=== PATIENT | female | born 1970 | race African-American/Black ===

== ENCOUNTER 2017-04-02 06:57 | Emergency (ER) | payer SELFPAY ==
[2017-04-02 07:53] LABS: ALT (SGPT) 10 U/L (8-55); AST (SGOT) 14 U/L (5-34); Alkaline Phosphatase 74 U/L (40-150); Anion Gap 15 mmol/L (10-20); BUN (Urea Nitrogen) 7 mg/dL (7.0-18.7); Bilirubin, Total 0.6 mg/dL (0.2-1.2); Calc. Creatinine Clearance 0 mL/min (70-130); Calcium 10.8 mg/dL (7.8-10.44); Carbon Dioxide 20 mmol/L (22-29); Chloride 105 mmol/L (98-107); Estimated GFR-MDRD Greater than 90; Globulin 4.8 g/dL (2.4-3.5); Magnesium 2.1 mg/dL (1.6-2.6); Protein, Total 9.2 g/dL (6.0-8.3)
[2017-04-02 07:57] LABS: Troponin I Less than 0.010 ng/mL (< 0.028)
[2017-04-02 08:01] LABS: #Basophils 0.1 thou/uL (0.0-0.2); #Eosinphils 0.3 thou/uL (0.0-0.7); #Monocytes 0.4 thou/uL (0.11-0.59); #Neutrophils 4.3 thou/uL (1.40-6.50); %Basophils 1.3 % (0.0-1.0); %Lymphocytes 37.1 % (21.0-51.0); %Monocytes 4.3 % (0.0-10.0); Hematocrit 34.3 % (36.0-47.0); Hypochromia MODERATE=16-30 cells (100X) (0-5/hpf); Mean Platelet Volume 10.5 fL (7.4-10.4); Target Cells SLIGHT = 2-5 cells (100X) (0-1/hpf); White Blood Cell (WBC) Count 8.1 thou/uL (4.8-10.8)
[2017-04-02 08:24] LABS: Bilirubin Negative (Negative); Blood, Urine Large (Negative); Glucose, Urine (Dipstick) Negative (Negative); Ketone, Urine 15 mg/dL (Negative); Nitrite Positive (Negative); Protein, Urine (Dipstick) 100 mg/dL (Neg-Trace); Urobilinogen 0.2 mg/dL (0.2-1.0)
[2017-04-02 08:27] LABS: Bacteria/HPF None Seen HPF (None Seen)
[2017-04-02 08:41] LABS: RBC/HPF GREATER THAN 50-TNTC HPF (0-3)
[2017-04-02 08:42] LABS: Hyaline Casts/LPF NONE SEEN LPF (0-3 Hyaline)
== END 2017-04-02 08:55 | disposition home or self-care (01) ==
LOC: ERS 06:57
DX: I47.1 Supraventricular tachycardia (principal); I25.2 Old myocardial infarction; I49.9 Cardiac arrhythmia, unspecified; I10 Essential (primary) hypertension; F17.210 Nicotine dependence, cigarettes, uncomplicated; Z79.899 Other long term (current) drug therapy
CPT/HCPCS: 80053; 81003; 81015; 81025; 83735; 84484; 85025; 93005; 96360; 99406

== ENCOUNTER 2017-05-21 00:15 | Emergency (ER) | payer SELFPAY ==
[2017-05-21 01:22] LABS: #Basophils 0.1 thou/uL (0.0-0.2); #Eosinphils 0.3 thou/uL (0.0-0.7); #Lymphocytes 3.1 thou/uL (1.20-3.40); #Monocytes 0.5 thou/uL (0.11-0.59); #Neutrophils 7.5 thou/uL (1.40-6.50); %Basophils 0.6 % (0.0-1.0); %Lymphocytes 26.5 % (21.0-51.0); %Monocytes 4.7 % (0.0-10.0); Hematocrit 27.9 % (36.0-47.0); Mean Platelet Volume 4.9 fL (7.4-10.4); Red Blood Cell (RBC) Count 3.91 mill/uL (4.20-5.40); White Blood Cell (WBC) Count 11.5 thou/uL (4.8-10.8)
[2017-05-21 01:25] LABS: PTT 28.5 SEC (22.9-36.1); Prothrombin Time 14.8 SEC (12.0-14.7)
[2017-05-21 01:41] LABS: ALT (SGPT) 9 U/L (8-55); AST (SGOT) 11 U/L (5-34); Alkaline Phosphatase 51 U/L (40-150); Anion Gap 11 mmol/L (10-20); BUN (Urea Nitrogen) 8 mg/dL (7.0-18.7); Bilirubin, Total 0.3 mg/dL (0.2-1.2); Calc. Creatinine Clearance 0 mL/min (70-130); Calcium 9.7 mg/dL (7.8-10.44); Carbon Dioxide 20 mmol/L (22-29); Chloride 110 mmol/L (98-107); Estimated GFR-MDRD Greater than 90; Globulin 3.2 g/dL (2.4-3.5); Protein, Total 6.7 g/dL (6.0-8.3)
--- NOTE | 2017-05-21 07:46 | RAD ---
PORTABLE CHEST: HISTORY: Supraventricular tachycardia. FINDINGS: Lungs are clear. Heart and mediastinum unremarkable. No evidence of vascular congestion. IMPRESSION: No acute finding. POS: [facility]
--- NOTE | 2017-06-04 11:18 | EKG ---
Test Reason : EMERGENCY EXAM Blood Pressure : / mmHG Vent. Rate : 098 BPM Atrial Rate : 098 BPM P-R Int : 128 ms QRS Dur : 070 ms QT Int : 336 ms P-R-T Axes : 071 070 046 degrees QTc Int : 428 ms Normal sinus rhythm Possible Left atrial enlargement Left ventricular hypertrophy Nonspecific ST abnormality Abnormal ECG Confirmed by RIN ALARCON M.D. ([id number]), editor news WILL NEWTON ([id number]) on 06/04/2017 11:18:10 AM Referred By: Confirmed By:RIN ALARCON M.D.
== END 2017-05-21 02:06 | disposition home or self-care (01) ==
LOC: ERS 00:15
DX: I47.1 Supraventricular tachycardia (principal); I10 Essential (primary) hypertension; I25.2 Old myocardial infarction; I49.9 Cardiac arrhythmia, unspecified; F17.210 Nicotine dependence, cigarettes, uncomplicated; Z79.899 Other long term (current) drug therapy
CPT/HCPCS: 36415; 71010; 80053; 82553; 84484; 84703; 85025; 85610; 85730; 93005; 96360

== ENCOUNTER 2025-01-12 16:38 | Inpatient (IN) | payer OTHER ==
[~2025-01-12 16:38] MED LIST: Iopamidol 370 76% 100 ML VIAL ONE
[2025-01-12] MEDS ORDERED: Aspirin Chewable 81 MG TAB ONE (17:19)
[2025-01-12 17:41] LABS: #Basophils 0.05 10x3/uL (0.0-0.2); #Eosinophils 0.12 10x3/uL (0.0-0.7); #Monocytes 0.56 10x3/uL (0.11-0.59); #Neutrophils 5.25 10x3/uL (1.40-6.50); %Basophils 0.6 % (0.0-1.0); %Eosinophils 1.4 % (0.0-10.0); %Lymphocytes 30.2 % (21.0-51.0); %Monocytes 6.5 % (0.0-10.0); %Neutrophils 61.1 % (42.0-75.0); Hematocrit 28.9 % (36.0-47.0); Hemoglobin 9.1 g/dL (12.0-16.0); Mean Corpuscular Hemoglobin 22.2 pg (27.0-31.0); Mean Corpuscular Volume 70.7 fL (78.0-98.0); Platelet Count 405 10x3/uL (130-400); Red Blood Cell (RBC) Count 4.09 mill/uL (4.20-5.40); White Blood Cell (WBC) Count 8.59 10x3/uL (4.8-10.8)
[2025-01-12 17:51] LABS: ALT (SGPT) 11 U/L (Less than 34); AST (SGOT) 12 U/L (11-34); Acetaminophen Less than 10 mcg/mL (Less than 10); Albumin 3.3 g/dL (3.1-4.5); Alkaline Phosphatase 69 U/L (40-110); Anion Gap 13 mmol/L (10-20); BUN (Urea Nitrogen) 6 mg/dL (9.8-20.1); Bilirubin, Total 0.6 mg/dL (0.3-1.2); Calc. Creatinine Clearance 0 mL/min (70-130); Calcium 10.0 mg/dL (7.8-10.44); Carbon Dioxide 21 mmol/L (22-29); Chloride 108 mmol/L (98-107); Globulin 3.2 g/dL (2.4-3.5); Glucose 98 mg/dL (70-105); Potassium 3.9 mmol/L (3.5-5.1); Salicylate Less than 8.0 mg/dL (Less than 8.0); Sodium 138 mmol/L (136-145)
[2025-01-12 17:53] LABS: INR-International Normal Ratio 1.1; PTT 25.8 sec (22.9-36.1); Prothrombin Time 14.7 sec (12.0-14.7)
[2025-01-12 17:58] LABS: Troponin I Less than 0.010 ng/mL (< 0.028)
[2025-01-12 18:07] LABS: Microcytosis SLIGHT = 6-15 cells (100X) (0-5/hpf); Plasma Cells 0 % (0-0); Platelet Adequacy Comment Appears Increased; Polychromasia SLIGHT = 2-3 cells (100X) (0-2/hpf)
[2025-01-12] MEDS ORDERED: Acetaminophen 500 MG TAB ONE (18:46)
[2025-01-12] MEDS ORDERED: Ondansetron PF 4 MG/2 ML Vial IVP PRN (19:58)
[2025-01-12] MEDS: diphenhydrAMINE 50 MG/ML VIAL IVP SCH (21:22)
[2025-01-12] MEDS: Prochlorperazine 10 MG/2 ML VIAL SLOW IVP SCH (21:22)
[2025-01-12] MEDS: Fioricet 325/50/40 mg Tablet PO PRN (21:37)
[2025-01-12 23:18] VITALS: BMI 29.2
[2025-01-13 04:01] LABS: #Basophils 0.05 10x3/uL (0.0-0.2); #Eosinophils 0.22 10x3/uL (0.0-0.7); #Monocytes 0.69 10x3/uL (0.11-0.59); #Neutrophils 4.32 10x3/uL (1.40-6.50); %Basophils 0.6 % (0.0-1.0); %Eosinophils 2.6 % (0.0-10.0); %Lymphocytes 37.6 % (21.0-51.0); %Monocytes 8.1 % (0.0-10.0); %Neutrophils 50.9 % (42.0-75.0); Hematocrit 29.3 % (36.0-47.0); Hemoglobin 9.0 g/dL (12.0-16.0); Mean Corpuscular Hemoglobin 22.2 pg (27.0-31.0); Mean Corpuscular Volume 72.2 fL (78.0-98.0); Platelet Count 367 10x3/uL (130-400); Red Blood Cell (RBC) Count 4.06 mill/uL (4.20-5.40); White Blood Cell (WBC) Count 8.50 10x3/uL (4.8-10.8)
[2025-01-13 04:32] LABS: Anisocytosis SLIGHT = 6-15 cells HPF (0-5); Microcytosis SLIGHT = 6-15 cells HPF (0-5); Platelet Adequacy Comment Platelets Normal; Polychromasia SLIGHT = 2-3 cells HPF (0-2); Target Cells SLIGHT = 2-5 cells HPF (0-1)
[2025-01-13 04:43] LABS: Anion Gap 10 mmol/L (10-20); BUN (Urea Nitrogen) 10 mg/dL (9.8-20.1); Calc. Creatinine Clearance 177 mL/min (70-130); Calcium 10.2 mg/dL (7.8-10.44); Carbon Dioxide 20 mmol/L (22-29); Cardiac Risk 3.8 (Less than 4.5); Chloride 109 mmol/L (98-107); Cholesterol 153 mg/dl (< 200 Desired); Glucose 97 mg/dL (70-105); HDL Cholesterol 40 mg/dL (>60 Neg Risk); Iron 47 ug/dL (50-170); Iron Binding Capacity, Total 343 mcg/dL (265-497); LDL Cholesterol, Calculated 97 mg/dL; Potassium 3.5 mmol/L (3.5-5.1); Sodium 135 mmol/L (136-145); Triglycerides 80 mg/dL (Less than 150)
[2025-01-13] MEDS: Enoxaparin 40 MG (0.4 mL) SYRINGE SC SCH (09:13)
[2025-01-13] MEDS: Aspirin 81 mg Enteric Coated Tablet PO SCH (09:13)
[2025-01-13] MEDS: NIFEdipine XL 30 MG ER.TAB PO SCH (09:13)
[2025-01-13] MEDS: Acetaminophen 325 MG TAB PO PRN (13:15)
[2025-01-13] MEDS: Triple Antibiotic Oint 1 GM Packet TOP PRN (13:15)
[2025-01-14 09:40] LABS: Cocaine Metabolite Screen Negative (Negative); THC/Cannabinoid Screen Negative (Negative); Tricyclic Screen Negative (Negative)
[2025-01-14 11:42] LABS: #Basophils 0.04 10x3/uL (0.0-0.2); #Eosinophils 0.15 10x3/uL (0.0-0.7); #Monocytes 0.76 10x3/uL (0.11-0.59); #Neutrophils 5.07 10x3/uL (1.40-6.50); %Basophils 0.5 % (0.0-1.0); %Eosinophils 1.7 % (0.0-10.0); %Lymphocytes 30.7 % (21.0-51.0); %Monocytes 8.7 % (0.0-10.0); %Neutrophils 58.2 % (42.0-75.0); Hematocrit 32.8 % (36.0-47.0); Hemoglobin 10.1 g/dL (12.0-16.0); Mean Corpuscular Hemoglobin 21.9 pg (27.0-31.0); Mean Corpuscular Volume 71.0 fL (78.0-98.0); Platelet Count 426 10x3/uL (130-400); Red Blood Cell (RBC) Count 4.62 mill/uL (4.20-5.40); White Blood Cell (WBC) Count 8.72 10x3/uL (4.8-10.8)
[2025-01-14 12:07] LABS: ALT (SGPT) 7 U/L (Less than 34); AST (SGOT) 19 U/L (11-34); Albumin 3.6 g/dL (3.1-4.5); Alkaline Phosphatase 75 U/L (40-110); Anion Gap 14 mmol/L (10-20); BUN (Urea Nitrogen) 5 mg/dL (9.8-20.1); Bilirubin, Total 0.6 mg/dL (0.3-1.2); Calc. Creatinine Clearance 183 mL/min (70-130); Calcium 10.8 mg/dL (7.8-10.44); Carbon Dioxide 18 mmol/L (22-29); Chloride 107 mmol/L (98-107); Globulin 4.3 g/dL (2.4-3.5); Glucose 117 mg/dL (70-105); Potassium 3.9 mmol/L (3.5-5.1); Sodium 135 mmol/L (136-145)
[2025-01-14 12:17] LABS: Anisocytosis SLIGHT = 6-15 cells HPF (0-5); Burr Cells SLIGHT = 2-5 cells HPF (0-1); Microcytosis SLIGHT = 6-15 cells HPF (0-5); Platelet Adequacy Comment Platelets Normal; Polychromasia MODERATE = 3-4 cells HPF (0-2); Target Cells SLIGHT = 2-5 cells HPF (0-1)
[2025-01-15 04:17] LABS: Hematocrit 30.4 % (36.0-47.0); Hemoglobin 9.4 g/dL (12.0-16.0); Mean Corpuscular Hemoglobin 22.4 pg (27.0-31.0); Mean Corpuscular Volume 72.4 fL (78.0-98.0); Platelet Count 407 10x3/uL (130-400); Red Blood Cell (RBC) Count 4.20 mill/uL (4.20-5.40); White Blood Cell (WBC) Count 11.56 10x3/uL (4.8-10.8)
[2025-01-15 04:39] LABS: Anion Gap 11 mmol/L (10-20); BUN (Urea Nitrogen) 12 mg/dL (9.8-20.1); Calc. Creatinine Clearance 157 mL/min (70-130); Calcium 10.4 mg/dL (7.8-10.44); Carbon Dioxide 21 mmol/L (22-29); Chloride 105 mmol/L (98-107); Glucose 105 mg/dL (70-105); Potassium 3.9 mmol/L (3.5-5.1); Sodium 133 mmol/L (136-145)
[2025-01-15 05:01] LABS: Microcytosis SLIGHT = 6-15 cells HPF (0-5); Platelet Adequacy Comment Platelets Increased; Polychromasia SLIGHT = 2-3 cells HPF (0-2); Schistocytes SLIGHT = 2-5 cells HPF (0-1)
[2025-01-15] MEDS: Ferrous Sulfate 325 MG TAB PO SCH (09:07)
[2025-01-15] MEDS: Multivitamin W/ Minerals 1 TAB PO SCH (09:07)
[2025-01-15] MEDS: Metoclopramide HCl 10 MG (2 mL) VIAL IVP SCH (22:00)
[2025-01-15] MEDS: diphenhydrAMINE 50 MG/ML VIAL IVP SCH (22:02)
[2025-01-16] MEDS: diphenhydrAMINE 50 MG/ML VIAL IVP SCH (05:11)
[2025-01-16] MEDS: Aspirin Chewable 81 MG TAB PO SCH (09:50)
[2025-01-16] MEDS ORDERED: HYDROcodone/Acetaminophen 5/325 mg Tablet PO PRN (11:08)
[2025-01-17] MEDS ORDERED: Bisacodyl 10 MG SUPP PR PRN (08:34)
[2025-01-18 12:38] VITALS: BP 126/86; TEMP 97.8
== END 2025-01-18 16:00 | DRG 65 ==
LOC: ERS 16:38 → 2SE 19:57
PROVIDERS: ADMIT Internal Medicine; ATTEND Internal Medicine
DX: I63.9 Cerebral infarction, unspecified (principal); G81.91 Hemiplegia, unspecified affecting right dominant side; D64.9 Anemia, unspecified; F10.90 Alcohol use, unspecified, uncomplicated; I10 Essential (primary) hypertension; R29.707 NIHSS score 7; E78.5 Hyperlipidemia, unspecified; R47.1 Dysarthria and anarthria; I25.2 Old myocardial infarction; Z72.0 Tobacco use; Z88.0 Allergy status to penicillin; Z98.890 Other specified postprocedural states
CPT/HCPCS: 36415; 36416; 70450; 70496; 70498; 70553; 71045; 76376; 80048; 80053; 80061; 80306; 80307; 82728; 83036; 83540; 83550; 83880; 84484; 85025; 85610; 85730; 93005; 93306; J0780; J1200; J1650; J2270; J2765; Q9967